=== PATIENT | female | born 1970 | race Native Hawaiian/Other Pacific Islander ===

== ENCOUNTER 2017-02-21 12:43 | Emergency (ER) | payer BC ==
[~2017-02-21] VITALS: Ht 172.7 cm; Wt 87.1 kg
[2017-02-21 12:49] VITALS: TEMP 97.7
[2017-02-21 13:30] LABS: PLATELET COUNT 407 K/uL (152-353)
[2017-02-21 13:36] LABS: SODIUM 138 mmol/L (136-145)
[2017-02-21 17:20] VITALS: BP 118/70
== END 2017-02-21 17:21 | disposition home or self-care (01) ==
LOC: ED 12:43
PROVIDERS: Emergency Medicine
DX: R11.2 Nausea with vomiting, unspecified (principal); I88.0 Nonspecific mesenteric lymphadenitis
CPT/HCPCS: 36415; 80053; 81000; 84443; 85027; 87086; 87088; 96361; 96365; 96375; 99284; J0696; J2405; J2550